=== PATIENT | male | born 1990 | race African-American/Black ===

== ENCOUNTER 2018-09-16 03:00 | Emergency (ER) | payer SELFPAY ==
[~2018-09-16] VITALS: Ht 175.3 cm; Wt 79.4 kg
--- NOTE | 2018-09-16 07:08 | NUR ---
PT A/OX4, PRESENTS TO THE ER C/O COUGHING AND SOB THAT STARTED AT AROUND 0200. PT NOTED TO BE WHEEZING. VSS. PT DENIES PAIN, C/P, N/V/D, DIZZINESS, HEADACHE.
--- NOTE | 2018-09-16 07:12 | NUR ---
PT REPORTS PMH OF ASTHMA AND HAS NOT HAD HIS RESCUE INHALER FOR APPROXIMATELY 5 DAYS.
--- NOTE | 2018-09-16 07:29 | NUR ---
NICA MCGEE AT BEDSIDE FOR MSE.
--- NOTE | 2018-09-16 07:35 | NUR ---
RT CALLED FOR BREATHING TX.
[2018-09-16] MEDS ORDERED: predniSONE 20 MG TABLET ONE (07:44)
[2018-09-16] MEDS ORDERED: IPRATROPIUM BROMIDE 0.5 MG/2.5 ML NEBU NEB ONE (07:45)
[2018-09-16] MEDS ORDERED: ALBUTEROL SULFATE 2.5 MG/3 ML NEBU NEB ONE (07:45)
[2018-09-16] MEDS ORDERED: predniSONE 10 MG TABLET PO ONE (07:45)
--- NOTE | 2018-09-16 07:45 | NUR ---
RT AT BEDSIDE.
[2018-09-16] MEDS ORDERED: ALBUTEROL SULFATE 2.5 MG/3 ML NEBU ONE (07:46)
[2018-09-16] MEDS ORDERED: IPRATROPIUM BROMIDE 0.5 MG/2.5 ML NEBU ONE (07:46)
--- NOTE | 2018-09-16 09:03 | NUR ---
PT RESTING COMFORTABLY IN BED. NO RESPIRATORY DISTRESS NOTED AT THIS TIME. FRIENDS AT BEDSIDE.
--- NOTE | 2018-09-16 09:10 | NUR ---
NICA MCGEE AT BEDSIDE FOR PT UPDATE.
--- NOTE | 2018-09-16 09:27 | NUR ---
Patient discharged to home in stable conditon. Written and verbal after care instructions given. Patient verbalizes understanding of instructions. ALL BELONGINGS W/ PT. PT SELF-AMBULATED W/O DIFFICULTY.
[2018-09-16 09:28] VITALS: BP 132/68
== END 2018-09-16 09:29 | disposition home or self-care (01) ==
LOC: ER 03:02
DX: J45.901 Unspecified asthma with (acute) exacerbation (principal)
CPT/HCPCS: 94644; 99285; J7512; A4663; J3590